=== PATIENT | female | born 1975 | race Caucasian/White ===

== ENCOUNTER 2021-08-10 23:17 | Emergency (ER) | payer SELFPAY ==
[2021-08-11 00:11] LABS: Urine Blood Negative (Negative); Urine Glucose Negative (Negative); Urine Protein Negative (Negative); Urine Specific Gravity >=1.030 (1.005-1.030)
[2021-08-11 00:32] LABS: Barbiturates NEGATIVE (NEGATIVE); Benzodiazepines NEGATIVE (NEGATIVE); Cocaine NEGATIVE (NEGATIVE); METHAMPHETAM NEGATIVE (NEGATIVE); Methadone NEGATIVE (NEGATIVE); Opiates NEGATIVE (NEGATIVE); Phencyclidine NEGATIVE (NEGATIVE); THC Cannibis NEGATIVE (NEGATIVE)
[2021-08-11 00:46] LABS: Urine Amorphous Sediment 1+ /HPF (NONE SEEN); Urine Bacteria <20 /HPF (<20); Urine RBC NONE SEEN /HPF (NONE SEEN)
[2021-08-11] MEDS ORDERED: ONDANSETRON 4 MG/2 ML VIAL ONE (00:55)
[2021-08-11] MEDS ORDERED: MORPHINE 4 MG/ML SYR ONE (00:55)
[2021-08-11] MEDS ORDERED: NA CHLORIDE 0.9% 1,000 ML ONE (00:55)
[2021-08-11 01:10] LABS: Absolute Lymphocytes (CBC) 1.8 K/uL (0.7-4.9); Hematocrit 41.1 % (36.0-45.0); Lymphocytes % 31.1 % (15.3-44.8); MPV 7.7 fL (7.6-11.3); RBC Red Blood Cell Count 4.69 M/uL (3.86-4.86)
[2021-08-11 01:23] LABS: Albumin 4.1 g/dL (3.4-5.0); Bilirubin Total 0.4 mg/dL (0.2-1.0); Potassium 3.8 mmol/L (3.5-5.1); Protein, Total 8.6 g/dL (6.4-8.2)
--- NOTE | 2021-08-11 02:50 | ER ---
Nurse's Notes [facility] Name: Oanh Gomez Age: 46 yrs Sex: Female : 1975 Arrival Date: 08/10/2021 Time: 23:20 Bed 2 Private MD: Diagnosis: Abdominal pain, unspecified;Nausea with vomiting, unspecified Presentation: 08/10 23:30 Chief complaint: Patient states: "My side hurts real bad and I had blood come out of me lp1 but I don't know where it came out from"; Reports RLQ abdominal pain, vomiting, diarrhea, severe today. Coronavirus screen: At this time, the client does not indicate any symptoms associated with coronavirus-19. Ebola Screen: No symptoms or risks identified at this time. Initial Sepsis Screen: Does the patient meet any 2 criteria? Yes Does the patient have a suspected source of infection? No. Patient's initial sepsis screen is negative. Risk Assessment: Do you want to hurt yourself or someone else? Patient reports no desire to harm self or others. Onset of symptoms was August 10, 2021. 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 - Social history:: Smoking status: Patient reports the use of cigarette tobacco products, smokes one-half pack cigarettes per day. Screenin/11 00:58 Abuse screen: Denies threats or abuse. Denies injuries from another. Nutritional as6 screening: No deficits noted. Tuberculosis screening: No symptoms or risk factors identified. Fall Risk None identified. Assessment: 00:00 General: Appears in no apparent distress. uncomfortable, Behavior is calm, cooperative. as6 Pain: Complains of pain in posterior aspect of right lateral abdomen, anterior aspect of right lateral abdomen and right lower quadrant Pain radiates to back, suprapubic area and left lower quadrant Quality of pain is described as crampy, pressure, sharp. Neuro: Level of Consciousness is awake, alert, obeys commands, Oriented to person, place, time, situation. Cardiovascular: Capillary refill < 3 seconds Patient's skin is warm and dry. Respiratory: Airway is patent Trachea midline Respiratory effort is even, unlabored, Respiratory pattern is regular, symmetrical. GI: Abdomen is distended, Bowel sounds present X 4 quads. Abdomen is tender to palpation in right lower quadrant Reports nausea, vomiting. Vital Signs: 08/10 23:30 BP 161 / 101; Pulse 85; Resp 18; Temp 98.2(O); Pulse Ox 97% on R/A; Weight 72.12 kg lp1 (R); Height 5 ft. 4 in. (162.56 cm); Pain 02/09; 08/11 00:58 BP 141 / 75; Pulse 79; Resp 18 S; Pulse Ox 96% on R/A; as6 02:38 BP 94 / 53; Pulse 78; Resp 17; Pulse Ox 98% on R/A; kd3 08/10 23:30 Body Mass Index 27.29 (72.12 kg, 162.56 cm) lp1 ED Course: 08/10 23:20 Patient arrived in ED. kz 23:21 Pavel Boudreaux, TERENCE is Primary Nurse. as6 23:29 Curtis Brito MD is Attending Physician. mh7 23:32 Triage completed. lp1 23:32 Arm band placed on. lp1 08/11 00:14 Urine Microscopic Only Sent. as6 00:14 UDS Sent. as6 00:27 CT Stone Protocol In Process Unspecified. EDMS 00:52 Inserted saline lock: 22 gauge in right wrist, using aseptic technique. Blood collected.oe 00:58 Placed in gown. Bed in low position. Call light in reach. Side rails up X 1. Pulse ox as6 on. NIBP on. 03:06 No provider procedures requiring assistance completed. IV discontinued, intact, as6 bleeding controlled, No redness/swelling at site. Pressure dressing applied. Administered Medications: 00:57 Drug: NS 0.9% 1000 ml Route: IV; Rate: 1 bolus; Site: left hand; as6 03:06 Follow up: Response: No adverse reaction; IV Status: Completed infusion; IV Intake: as6 1000ml 00:57 Drug: Zofran (Ondansetron) 4 mg Route: IVP; Site: left hand; as6 03:06 Follow up: Response: No adverse reaction as6 00:57 Drug: morphine 4 mg Route: IVP; Site: left hand; as6 03:07 Follow up: Response: No adverse reaction; RASS: Alert and Calm (0) as6 Intake: 03:06 IV: 1000ml; Total: 1000ml. as6 Outcome: 02:49 Discharge ordered by . scott 03:06 Discharged to home ambulatory. as6 03:06 Condition: stable 03:06 Discharge instructions given to patient, Instructed on discharge instructions, follow up and referral plans. medication usage, Demonstrated understanding of instructions, follow-up care, medications, Prescriptions given X 2. 03:07 Patient left the ED. as6 Signatures: Dispatcher [employer] EDMS Jie Uribe, RN RN lp1 Marcelo Gonzáles Maurice, MD MD mh7 Pavel Boudreaux RN RN as6 Tonya Pinto RN RN kd3 Aixa Tobin
--- NOTE | 2021-08-11 02:50 | EDPHYS ---
Physician Documentation [facility] Name: Oanh Gomez Age: 46 yrs Sex: Female : 1975 Arrival Date: 08/10/2021 Time: 23:20 Bed 2 Private MD: ED Physician Curtis Brito HPI: 08/10 23:49 This 46 yrs old Female presents to ER via Wheelchair with complaints of Rectal mh7 Bleeding, Abdominal Pain - Right side. 23:49 The patient presents with abdominal pain right lower quadrant. Onset: The mh7 symptoms/episode began/occurred 3 week(s) ago. The symptoms radiate to the right flank. Associated signs and symptoms: Pertinent positives: nausea and vomiting, hematuria, Pertinent negatives: anorexia, blood in stools, chest pain, constipation, diarrhea, dysuria, fever, headache, palpitations, shortness of breath, vaginal discharge, vomiting blood. The symptoms are described as intermittent, vague, waxing/waning. Modifying factors: The symptoms are alleviated by nothing, the symptoms are aggravated by movement, touching the area. Severity of pain: At its worst the pain was moderate 3 day(s) ago, in the emergency department the pain has improved moderately. 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 - Social history:: Smoking status: Patient reports the use of cigarette tobacco products, smokes one-half pack cigarettes per day. ROS: 23:49 Constitutional: Negative for fever, chills, and weight loss, Eyes: Negative for injury, mh7 pain, redness, and discharge, ENT: Negative for injury, pain, and discharge, Neck: Negative for injury, pain, and swelling, Cardiovascular: Negative for chest pain, palpitations, and edema, Respiratory: Negative for shortness of breath, cough, wheezing, and pleuritic chest pain, MS/Extremity: Negative for injury and deformity, Skin: Negative for injury, rash, and discoloration, Neuro: Negative for headache, weakness, numbness, tingling, and seizure, Psych: Negative for depression, anxiety, suicide ideation, homicidal ideation, and hallucinations, Allergy/Immunology: Negative for hives, rash, and allergies, Endocrine: Negative for neck swelling, polydipsia, polyuria, polyphagia, and marked weight changes, Hematologic/Lymphatic: Negative for swollen nodes, abnormal bleeding, and unusual bruising. Exam: 23:49 Constitutional: This is a well developed, well nourished patient who is awake, alert, mh7 and in no acute distress. Head/Face: Normocephalic, atraumatic. Eyes: Pupils equal round and reactive to light, extra-ocular motions intact. Lids and lashes normal. Conjunctiva and sclera are non-icteric and not injected. Cornea within normal limits. Periorbital areas with no swelling, redness, or edema. 23:49 Neck: Trachea midline, no thyromegaly or masses palpated, and no cervical lymphadenopathy. Supple, full range of motion without nuchal rigidity, or vertebral point tenderness. No Meningismus. Chest/axilla: Normal chest wall appearance and motion. Nontender with no deformity. No lesions are appreciated. Cardiovascular: Regular rate and rhythm with a normal S1 and S2. No gallops, murmurs, or rubs. Normal PMI, no JVD. No pulse deficits. Respiratory: Lungs have equal breath sounds bilaterally, clear to auscultation and percussion. No rales, rhonchi or wheezes noted. No increased work of breathing, no retractions or nasal flaring. Skin: Warm, dry with normal turgor. Normal color with no rashes, no lesions, and no evidence of cellulitis. MS/ Extremity: Pulses equal, no cyanosis. Neurovascular intact. Full, normal range of motion. Neuro: Awake and alert, GCS 15, oriented to person, place, time, and situation. Cranial nerves II-XII grossly intact. Motor strength 5/5 in all extremities. Sensory grossly intact. Cerebellar exam normal. Normal gait. Psych: Awake, alert, with orientation to person, place and time. Behavior, mood, and affect are within normal limits. 23:49 Constitutional: The patient appears uncomfortable. 23:49 Abdomen/GI: Inspection: abdomen appears normal, Bowel sounds: normal, in all quadrants, mh7 Palpation: moderate abdominal tenderness, in the right lower quadrant, mass, is not appreciated, rebound tenderness, is not appreciated, voluntary guarding, is not appreciated, involuntary guarding, is not appreciated, no appreciated organomegaly, Rectal exam: rectal tone normal, Stool: brown, guaiac negative, hemorrhoid(s), are not appreciated, mass, is not appreciated, swelling, is not appreciated, tenderness, is not appreciated, the exam is chaperoned by the nurse, Indicators: McBurney's point is not tender, Le's sign is negative, Rovsing's sign is negative, Obturator sign is negative, Psoas sign is negative, Liver: no appreciated palpable abnormalities, Hernia: not appreciated. 23:49 Back: No spinal tenderness. No costovertebral tenderness. Full range of motion. 7 Vital Signs: 23:30 BP 161 / 101; Pulse 85; Resp 18; Temp 98.2(O); Pulse Ox 97% on R/A; Weight 72.12 kg lp1 (R); Height 5 ft. 4 in. (162.56 cm); Pain 02/09; 08/11 00:58 BP 141 / 75; Pulse 79; Resp 18 S; Pulse Ox 96% on R/A; as6 02:38 BP 94 / 53; Pulse 78; Resp 17; Pulse Ox 98% on R/A; kd3 08/10 23:30 Body Mass Index 27.29 (72.12 kg, 162.56 cm) lp1 MDM: 02:45 Differential diagnosis: appendicitis, bowel obstruction, diverticulitis, gastritis, mh7 gastroesophageal reflux disease, non-specific abd pain, Pyelonephritis, Ureterolithiasis, urinary tract infection. Data reviewed: vital signs, nurses notes, lab test result(s), CBC, electrolytes, urinalysis, radiologic studies, CT scan. Data interpreted: Pulse oximetry: on room air is 98 %. Interpretation: normal. Counseling: I had a detailed discussion with the patient and/or guardian regarding: the historical points, exam findings, and any diagnostic results supporting the discharge/admit diagnosis, lab results, radiology results, the need for outpatient follow up, to return to the emergency department if symptoms worsen or persist or if there are any questions or concerns that arise at home. Response to treatment: the patient's symptoms have resolved after treatment, the patient's blood pressure is in an acceptable range, mental status has returned to baseline, the patient no longer shows bradycardia, the patient is not short of breath, the patient is not tachycardic, the patient's pain is gone, the patient's temperature has normalized. 02:49 Patient medically screened. [facility] 08/10 23:45 Order name: CBC with Diff; Complete Time: 01:24 [facility] 08/10 23:45 Order name: CMP; Complete Time: 01:24 [facility] 08/10 23:45 Order name: Lipase; Complete Time: 01:24 [facility] 08/10 23:45 Order name: Urine Microscopic Only; Complete Time: 01:24 [facility] 08/10 23:46 Order name: UDS; Complete Time: 01:24 [facility] 08/11 00:11 Order name: Urine --Ancillary (enter results); Complete Time: 01:24 [facility] 08/10 23:45 Order name: IV Saline Lock; Complete Time: 00:57 [facility] 08/10 23:45 Order name: Labs collected and sent; Complete Time: 00:57 [facility] 08/10 23:45 Order name: Urine Dipstick-Ancillary (obtain specimen); Complete Time: 00:14 [facility] 08/10 23:47 Order name: CT Stone Protocol [facility] 08/11 00:11 Order name: Urine Dipstick-Ancillary; Complete Time: 01:24 [facility] 08/10 23:45 Order name: Urine Test (obtain specimen); Complete Time: 00:14 [facility] Administered Medications: 00:57 Drug: NS 0.9% 1000 ml Route: IV; Rate: 1 bolus; Site: left hand; as6 03:06 Follow up: Response: No adverse reaction; IV Status: Completed infusion; IV Intake: as6 1000ml 00:57 Drug: Zofran (Ondansetron) 4 mg Route: IVP; Site: left hand; as6 03:06 Follow up: Response: No adverse reaction as6 00:57 Drug: morphine 4 mg Route: IVP; Site: left hand; as6 03:07 Follow up: Response: No adverse reaction; RASS: Alert and Calm (0) as6 Disposition Summary: 08/11/21 02:49 Discharge Ordered Location: Home [facility] Problem: new [facility] Symptoms: have improved mh Condition: Stable [facility] Diagnosis - Abdominal pain, unspecified mh7 - Nausea with vomiting, unspecified [facility] Followup: [facility] - With: Private Physician - When: 1 - 2 days - Reason: Worsening of condition, Recheck today's complaints, Continuance of care, Re-evaluation by your physician Discharge Instructions: - Discharge Summary Sheet [facility] - Nausea and Vomiting, Adult, [id number] [facility] - Abdominal Pain, Adult, [id number] [facility] Forms: - Medication Reconciliation Form [facility] - Thank You Letter [facility] - Antibiotic Education [facility] - Prescription Opioid Use [facility] Prescriptions: - ondansetron 4 mg Oral tablet,disintegrating - place 1 tablet by TRANSLINGUAL route every 8 hours As needed; 10 tablet; 7 Refills: 0, Product Selection Permitted - dicyclomine 20 mg Oral Tablet - take 1 tablet by ORAL route 4 times per day As needed; 20 tablet; Refills: 0, 7 Product Selection Permitted Signatures: Dispatcher [employer] Jie Corona RN RN lp1 Curtis Brito MD MD 7 Pavel Boudreaux RN RN as6
[2021-08-11 06:55] VITALS: TEMP 98.2
[2021-08-11 06:58] VITALS: BP 94/53; O2SAT 98
--- NOTE | 2021-08-11 16:11 | RAD REPORT ---
EXAM DESCRIPTION: CT - Stone Protocol - 08/11/2021 6:42 am CLINICAL HISTORY: The patient is 46 years old and is Female; Abd pain;Flank pain TECHNIQUE: Axial computed tomography images of the abdomen and pelvis without intravenous contrast. Sagittal and coronal reformatted images were created and reviewed. This CT exam was performed usi ng one or more of the following dose reduction techniques: automated exposure control, adjustment o f the mA and/or kV according to patient size, and/or use of iterative reconstruction technique. COMPARISON: No relevant prior studies available. FINDINGS: Lung bases: 7 mm groundglass nodule in the right lower lobe. ABDOMEN: Liver: Unremarkable. Gallbladder and bile ducts: Unremarkable. No calcified stones. No ductal dilation. Pancreas: Unremarkable. No ductal dilation. Spleen: Unremarkable. No splenomegaly. Adrenals: Unremarkable. No mass. Kidneys and ureters: Mildly nodular/scarred appearance to the right kidney. Simple cyst in the l eft kidney. ACR White Paper guidelines (Herpollo, et al. JACR 2018; 15(2):264-273) suggest no follow-up is necessary. No obstructing stones. No hydronephrosis. Stomach and bowel: Unremarkable. No obstruction. No mucosal thickening. PELVIS: Appendix: The appendix is normal. Bladder: Unremarkable. No stones. Reproductive: Unremarkable as visualized. ABDOMEN and PELVIS: Intraperitoneal space: Unremarkable. No free air. No significant fluid collection. Bones/joints: No acute fracture. No dislocation. Soft tissues: Unremarkable. Vasculature: Scattered atherosclerotic vascular calcifications. No abdominal aortic aneurysm. Lymph nodes: Unremarkable. No enlarged lymph nodes. IMPRESSION: 1. No acute finding abdomen/pelvis. 2. Additional non-emergent findings as above. Electronically signed by: Milton Carrillo MD 08/11/2021 12:50 AM CDT Due to temporary technical issues with the PACS/Fluency reporting system, reports are being signed by the in house radiologist without review as a courtesy to ensure prompt reporting. The interpreting r adiologist is fully responsible for the content of the report.
== END 2021-08-11 03:07 | disposition home or self-care (01) ==
LOC: ER 23:17
DX: R10.31 Right lower quadrant pain (principal); R11.2 Nausea with vomiting, unspecified; F17.210 Nicotine dependence, cigarettes, uncomplicated; Z88.5 Allergy status to narcotic agent
CPT/HCPCS: 36415; 74176; 76377; 80053; 80307; 81003; 81015; 81025; 83690; 85025; 96361; 96374; 96375; 99284; J2405; J7030

== ENCOUNTER 2021-08-24 14:25 | Emergency (ER) | payer SELFPAY ==
--- OUTSIDE RECORDS SUMMARY | 2021-08-24 14:29 | XMS REPORT | Continuity of Care Document ---
:1975 Author Organization [facility] t Address [address] [place] [address] Care Team Providers Name Role Phone Physician, Primary or Family Admitting Clinician Unavailabl e Payers Payer Name Policy Type Policy Number Effective Date Expiration Date S ource Problems This patient has no known problems. Allergies, Adverse Reactions, Alerts Allergy Allergy Status Severity Reaction(s) Onset Inactive Treating Comm ents Source Name Type Date Date Clinician No Known DA Active U [facility] Allergie 09-07 Clear s 00:00: [place] 00 [facility] Medications This patient has no known medications. Procedures This patient has no known procedures. Encounters Start End Encounter Admission Attending Care Care Encounter Source Date/Time Date/Time Type Type Clinicians Facility Department ID 2020-06-05 [id number] [facility] 19:59:00 [id number] [facility] Results Test Description Test Time Test Comments Results Result Comments Source CT/NG, NAAT, URINE 2021-08-15 17:22:13 Test Item Value Reference Range Interpretation Comme nts GONORRHEA, NAAT NEGATIVE NEGATIVE IMPORTANT NOTICE: SEE ANNOUNCEMENT (test code = [place] [address]) [email or web address] Note: Assay methodolo gy is nucleic acid amplification by transcriptio n mediated amplification (TMA) utilizing the Aptima Combo 2 Assay. CHLAMYDIA, NAAT NEGATIVE NEGATIVE IMPORTANT NOTICE: SEE ANNOUNCEMENT (test code = [place] [address]) [email or web address] Note: Assay methodolo gy is nucleic acid amplification by transcriptio n mediated amplification (TMA) utilizing the Aptima Combo 2 Assay. HCV RNA, PCR [id number] 14:43:13 Test Item Value Reference Range Interpretation Comments HCV RNA, PCR 120713 IU/ML H QUANT (test code = 4571) HCV VIRAL LOG 5.678 LOG IU/ML H HCV RNA wa s detected, (test code = indicating curr ent HCV 39047) infection. Rang e of quantitation is 15-100,000,000 IU/mL, (1.176-8.000 lo gIU/mL). Samples with HC V RNA detected below the limit ofquantit ation are reported as <15 IU/mL. Assay methodology ispolymerase ch ain reaction (PCR) using the Fide Tee 6800/8800system . The expected range is NOT DETECTED. UNLESS OTHERWISE INDIC ATED, ALL TESTING PER FORMED ATCLINICAL PATH [facility]. [address] [place] [address] LABORATORY DIRE CTOR: Jose Luis HERRON [id number] CAP ACCREDITATION N O. [id number] 05:06:54 Test Item Value Reference Range Interpretation Comments RPR RESULT (test code = NON-REACTIVE NON-REACTIVE 3501) RPR TITER (test code = 3500) NOT INDIC. TITER NOT INDIC. HEPATITIS C REFLEX [id number] 03:54:02 Test Item Value Reference Range Interpretation Comments HEPATITIS C ANTIBODY (test code = REACTIVE NON-REACTIVE A 4675) HEPATITIS A [id number] 03:54:02 Test Item Value Reference Range Interpretation Comments HEPATITIS A IgM (test code = NON-REACTIVE NON-REACTIVE 53871) HEPATITIS B CORE [id number] 03:54:02 Test Item Value Reference Range Interpretation Comments HEPATITIS B CORE IgM (test code NON-REACTIVE NON-REACTIVE = 4644) HEPATITIS B SURF [id number] 03:54:02 Test Item Value Reference Range Interpretation Comments HEPATITIS B SURF AG (test code = NON-REACTIVE NON-REACTIVE 8859) HIV 1/2 4TH GEN, RFLX [id number] 03:54:02 Test Item Value Reference Range Interpretation Comments HIV 1/2 4TH GEN, RFLX CONF (test NON-REACTIVE NON-REACTIVE code = 3514)
--- NOTE | 2021-08-24 16:57 | RAD REPORT ---
EXAM DESCRIPTION: US - Extremity Venous Uni Ltd - 08/24/2021 4:44 pm CLINICAL HISTORY: Pain COMPARISON: None. TECHNIQUE: Real-time sonographic evaluation of the left lower extremity deep venous system was perfo rmed. FINDINGS: Normal compressibility, flow augmentation, phasic flow and spontaneous flow are identified in the left lower extremity common femoral, superficial femoral, popliteal and posterior tibial vein s. No intraluminal filling defects seen. IMPRESSION: No DVT in the left lower extremity.
--- NOTE | 2021-08-24 17:03 | RAD REPORT ---
EXAM DESCRIPTION: RAD - Hip Left 2 View - 08/24/2021 4:00 pm CLINICAL HISTORY: PAIN COMPARISON: Stone Protocol dated 08/11/2021 FINDINGS: AP and frogleg views of the left hip were obtained. Severe degenerative changes are present at the left hip joint. The superior joint space is effaced. T here are numerous subcortical degenerative cystic changes in both the femoral head and the acetabulum . Acetabular and femoral head marginal hypertrophic degenerative spurs are present. The acetabulum is not increased can cavity over what is typically seen. Eggshell calcification is seen along the infer ior margin of the joint. No acute fracture is present. There is no dislocation or periosteal reaction. Pathologic changes are not identifiable. No soft tissue abnormality. 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 No acute fractures seen. No pathologic bone process.
--- NOTE | 2021-08-24 17:43 | RAD REPORT ---
EXAM DESCRIPTION: CT - Pelvis Wo Cont - 08/24/2021 5:23 pm CLINICAL HISTORY: left hip pain COMPARISON: Stone Protocol dated 08/11/2021 TECHNIQUE: Axial 2 millimeter thick images of the pelvis were obtained without oral or IV contrast. Sagittal and coronal reformatted images were generated and reviewed. All CT scans are performed using dose optimization technique as appropriate and may include automate d exposure control or mA/KV adjustment according to patient size. FINDINGS: Imaged bowel loops including the appendix are unremarkable. Uterus and ovaries show no giuseppe picious findings for noncontrast imaging. No urinary bladder abnormality seen. No abnormal lymphadenopathy, free air, free fluid or inflammatory stranding. No omental thickening. N o hernia or mass lesions identified. Partially imaged lower lumbar spine shows no suspicious finding. No significant SI joint abnormality identified. Right hemipelvis is unremarkable. No acute pelvic or hip joint finding seen. Patient has very severe left hip joint degenerative change . There are large subcortical degenerative cystic changes in the left humeral head. Moderately large spurs are seen along the articular margins of both the humeral head and acetabulum. Femoral head stil l maintains rounded contour. There is increased concavity or scalloping of the acetabulum which has r emodeled from the chronic degenerative change. An 18 millimeter rim calcification masses present jorge luis g the inferior margin of the joint. No acute or pathologic change to the proximal femur or left hemip earl. Joint space is effaced. IMPRESSION: Very severe chronic degenerative changes of the left hip joint with probable femoral hea d AVN. Large spurs are present along the articular margins of the femoral head and acetabulum with the aceta bulum showing increased concavity and remodeling from the chronic change. No acute proximal femur or pelvis finding. No periarticular hematoma or mass.
--- NOTE | 2021-08-24 17:58 | EDPHYS ---
Physician Documentation [facility] Name: Oanh Gomez Age: 46 yrs Sex: Female : 1975 Arrival Date: 08/24/2021 Time: 14:27 Bed 10 Private MD: ED Physician Clau Hernandez HPI: 08/24 15:45 This 46 yrs old Female presents to ER via Ambulatory with complaints of Hip Pain. cp 15:45 The patient or guardian reports pain. sustained from unknown reason, There is no cp obvious deformity, The patient is able to ambulate with assistance. The patient is able to bear their full body weight. There is no radiation of the patient's discomfort. The complaints affect the left hip. Onset: The symptoms/episode began/occurred gradually, and became worse over past 2 months. Associated signs and symptoms: Pertinent negatives: abdominal pain, chest pain, diarrhea, dysuria, fever, weakness. Severity of symptoms: in the emergency department the symptoms are unchanged, despite home interventions. 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 - Social history:: Smoking status: Patient reports the use of cigarette tobacco products, smokes one-half pack cigarettes per day, 04/14/2021 last time using cocaine. ROS: 15:50 MS/extremity: Positive for pain, of the left hip, Negative for injury or acute cp deformity, decreased range of motion, paresthesias. 15:50 Neck: Negative for pain with movement, pain at rest. cp 15:50 Abdomen/GI: Negative for abdominal pain. 15:50 Back: Negative for pain at rest, pain with movement. 15:50 : Negative for urinary symptoms. 15:50 Skin: Negative for rash. 15:50 Neuro: Negative for altered mental status, headache, numbness, weakness. 15:50 All other systems are negative. Exam: 15:55 Constitutional: The patient appears in no acute distress, alert, awake, non-toxic, well cp developed, well nourished, uncomfortable. 15:55 Head/Face: Normocephalic, atraumatic. cp 15:55 Neck: ROM/movement: is normal, is supple, without pain, no range of motions limitations. 15:55 Cardiovascular: Rate: normal. 15:55 Respiratory: the patient does not display signs of respiratory distress, Respirations: normal, no use of accessory muscles, no retractions. 15:55 Abdomen/GI: Inspection: abdomen appears normal, Bowel sounds: active, all quadrants, Palpation: abdomen is soft and non-tender, in all quadrants. 15:55 Back: pain, is absent, ROM is normal. 15:55 Musculoskeletal/extremity: ROM: full passive range of motion, in the left hip, limited passive range of motion due to pain, in the left hip, Pulses: noted to be 2+ in the left dorsalis pedis artery, the left leg Sensation intact. Joints: the left hip displays pain at rest, painful range of motion, tenderness. 15:55 Skin: cellulitis, is not appreciated, no rash present. Vital Signs: 14:38 BP 112 / 84; Pulse 91; Resp 18; Temp 98.6; Pulse Ox 97% on R/A; Weight 73.03 kg; Height ww 5 ft. 4 in. (162.56 cm); Pain 10/10; 16:05 BP 118 / 86; Pulse 86; Resp 18; Pulse Ox 99% on R/A; Pain 8/10; ld1 17:29 BP 126 / 81; Pulse 79; Resp 18; Pulse Ox 100% on R/A; ld1 14:38 Body Mass Index 27.64 (73.03 kg, 162.56 cm) MDM: 15:40 Patient medically screened. cp 16:00 Differential diagnosis: hip fracture, bursitis, arthritis, AVN, septic joint. cp 17:58 Data reviewed: vital signs, nurses notes, radiologic studies, CT scan, plain films. cp 17:58 Counseling: I had a detailed discussion with the patient and/or guardian regarding: the cp historical points, exam findings, and any diagnostic results supporting the discharge/admit diagnosis, radiology results, the need for outpatient follow up, for definitive care, a orthopedic surgeon, to return to the emergency department if symptoms worsen or persist or if there are any questions or concerns that arise at home. Response to treatment: the patient's symptoms have mildly improved after treatment, Discussed radiology results showed significant degenerative changes of left hip. Low suspicion for septic joint. Will discharge to home for continued monitoring. Patient instructed to f/u with ortho. 08/24 15:31 Order name: Hip Left 2 View XRAY; Complete Time: 17:36 cp 08/24 17:37 Interpretation: Report reviewed. cp 08/24 15:31 Order name: US Extremity Venous Unilateral Ltd; Complete Time: 17:36 cp 08/24 16:36 Order name: CT Pelvis wo Cont; Complete Time: 17:46 cp 08/24 17:59 Order name: Crutches; Complete Time: 18:08 cp Administered Medications: No medications were administered Disposition Summary: 08/24/21 17:58 Discharge Ordered Location: Home cp Problem: new cp Symptoms: have improved cp Condition: Stable cp Diagnosis - Pain in left hip cp Followup: cp - With: Riley Singh MD - When: 2 - 3 days - Reason: Recheck today's complaints Discharge Instructions: - Discharge Summary Sheet cp - Arthritis cp - Hip Pain cp Forms: - Medication Reconciliation Form cp - Thank You Letter cp - Antibiotic Education cp - Prescription Opioid Use cp Prescriptions: - Ultracet 37.5-325 mg Oral Tablet - take 1 tablet by ORAL route every 6 hours - for up to 5 days; do not exceed 8 cp tablets per day.; 15 tablet; Refills: 0, Product Selection Permitted Signatures: Dispatcher [employer] Rafael Nettles PA PA cp Wood, Whitney, RN RN ww
--- NOTE | 2021-08-24 17:58 | ER ---
Nurse's Notes [facility] Name: Oanh Gomez Age: 46 yrs Sex: Female : 1975 Arrival Date: 08/24/2021 Time: 14:27 Bed 10 Private MD: Diagnosis: Pain in left hip Presentation: 08/24 14:38 Chief complaint: Patient states: Left hip, thigh and leg pain that started awhile ago ww but has recently started swelling. Coronavirus screen: Client denies travel out of the [place] in the last 14 days. Coronavirus screen: Vaccine status: Patient reports being unvaccinated. Ebola Screen: Patient denies travel to an Ebola-affected area in the 21 days before illness onset. Initial Sepsis Screen: Does the patient meet any 2 criteria? No. Patient's initial sepsis screen is negative. Does the patient have a suspected source of infection? No. Patient's initial sepsis screen is negative. Risk Assessment: Do you want to hurt yourself or someone else? Patient reports no desire to harm self or others. Onset of symptoms is unknown. 14:38 Method Of Arrival: Ambulatory ww 14:38 Acuity: CARLOS A 4 ww Triage Assessment: 14:39 General: Appears in no apparent distress. Behavior is cooperative. Pain: Complains of ww pain in left femoral area and left hip. Neuro: Level of Consciousness is awake, alert, obeys commands, Oriented to person, place, time, situation, Gait is Speech is normal. Cardiovascular: Patient's skin is warm and dry. Respiratory: Airway is patent Respiratory effort is even, unlabored, Respiratory pattern is regular, symmetrical. GI: No signs and/or symptoms were reported involving the gastrointestinal system. GI: Reports constipation. : No signs and/or symptoms were reported regarding the genitourinary system. Derm:. Musculoskeletal: Reports pain in left femoral area and left hip. 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 - Social history:: Smoking status: Patient reports the use of cigarette tobacco products, smokes one-half pack cigarettes per day, 04/14/2021 last time using cocaine. Screenin:42 Abuse screen: Denies threats or abuse. Denies injuries from another. Nutritional ww screening: No deficits noted. Tuberculosis screening: No symptoms or risk factors identified. 16:05 Fall Risk None identified. ld1 Assessment: 16:05 General: Appears in no apparent distress. comfortable, Behavior is calm, cooperative, ld1 appropriate for age. Pain: Complains of pain in left leg Pain does not radiate. Pain currently is 8 out of 10 on a pain scale. Quality of pain is described as throbbing. Neuro: Level of Consciousness is awake, alert, obeys commands, Oriented to person, place, time, situation. Cardiovascular: Capillary refill < 3 seconds Patient's skin is warm and dry. Respiratory: Airway is patent Respiratory effort is even, unlabored, Respiratory pattern is regular, symmetrical. GI: Abdomen is flat, non-distended. : No signs and/or symptoms were reported regarding the genitourinary system. EENT: No signs and/or symptoms were reported regarding the EENT system. Derm: No signs and/or symptoms reported regarding the dermatologic system. Musculoskeletal: No signs and/or symptoms reported regarding the musculoskeletal system. Vital Signs: 14:38 BP 112 / 84; Pulse 91; Resp 18; Temp 98.6; Pulse Ox 97% on R/A; Weight 73.03 kg; Height ww 5 ft. 4 in. (162.56 cm); Pain 10/10; 16:05 BP 118 / 86; Pulse 86; Resp 18; Pulse Ox 99% on R/A; Pain 8/10; ld1 17:29 BP 126 / 81; Pulse 79; Resp 18; Pulse Ox 100% on R/A; ld1 14:38 Body Mass Index 27.64 (73.03 kg, 162.56 cm) ww ED Course: 14:27 Patient arrived in ED. mr 14:39 Triage completed. ww 14:39 Arm band placed on right wrist. ww 15:23 Rafael Carbone PA is PHCP. cp 15:23 Clau Hernandez MD is Attending Physician. cp 16:02 Hip Left 2 View XRAY In Process Unspecified. EDMS 16:05 Sonam Blount, RN is Primary Nurse. ld1 16:05 Patient has correct armband on for positive identification. Placed in gown. Bed in low ld1 position. Call light in reach. Side rails up X2. Pulse ox on. NIBP on. Door closed. Noise minimized. Warm blanket given. 16:05 No provider procedures requiring assistance completed. Patient did not have IV access ld1 during this emergency room visit. 16:46 US Extremity Venous Unilateral Ltd In Process Unspecified. EDMS 17:25 CT Pelvis wo Cont In Process Unspecified. EDMS 17:57 Riley Singh MD is Referral Physician. cp Administered Medications: No medications were administered Outcome: 17:58 Discharge ordered by MD. cp 18:08 Discharged to home ambulatory, with crutches. ld1 18:08 Condition: stable 18:08 Discharge instructions given to patient, Instructed on discharge instructions, follow up and referral plans. medication usage, Demonstrated understanding of instructions, follow-up care, medications, Prescriptions given X 1. 18:09 Patient left the ED. ld1 Signatures: Dispatcher [employer] EDPR Aide Shah mr Rafael Carbone, CINDY PA cp Sonam Blount, RN RN ld1 Ewa Bell, RN RN ww
[2021-08-24 18:21] VITALS: TEMP 98.6
[2021-08-24 18:24] VITALS: BP 126/81; O2SAT 100
== END 2021-08-24 18:09 | disposition home or self-care (01) ==
LOC: ER 14:25
DX: M25.552 Pain in left hip (principal); F17.210 Nicotine dependence, cigarettes, uncomplicated; Z88.5 Allergy status to narcotic agent
CPT/HCPCS: 72192; 93971; 99283

== ENCOUNTER → 2023-05-09 | Emergency (ER) | payer SELFPAY ==
[~2023-05-09] MED LIST: KETOROLAC 30 MG/ML INJ ONE; MORPHINE 4 MG/ML SYR ONE; NA CHLORIDE 0.9% 1,000 ML ONE; ONDANSETRON 4 MG/2 ML VIAL ONE; dexAMETHasone 10 MG/ML VIAL ONE
--- OUTSIDE RECORDS SUMMARY | 2023-05-09 21:10 | XMS REPORT | Continuity of Care Document ---
Author Name Unknown Address [address] [facility] [address] [id number] [facility] thconnect Address [address] [facility] [address] [place] [address] Care Team Providers Care Real Estate Closer Name Role Phone Unavailable Unavailable Unavailable Results Test Description Test Time Test Comments Results Result Co mments Source HEPATITIS C [id number] 21:59:13* Test Item Value Reference Range Interpretation Comme nts HEPATITIS C GENOTYPE (test code = 27798) 1a Assay method ology is real-time PCR amplification of the 5'UTR vpqFN2r regions of the HCV genome utilizing the [employer] Surgical RealTime HCVGenotype II assay and Clifford HCV Genotype Plus assay. Possiblegenotypes include 1a, 1b, 2, 3, 4, 5, and 6. This test has components designated by the automotive porter as "ForResearch Use Only". The performance characteristics of this testwere determined by [facility] ([facility]). The componentshave not been cleared or approved by the U.S. Food and DrugAdministration (FDA). The test results are not intended to be usedas the sole means for clinical diagnosis or patient management. [facility]is qualified to perform high complexity testing under the ClinicalLaboratory Improvement Amendments (CLIA). Electronically Signed by Sami Stark, Ph.D., D([facility]) COMPREHENSIVE METABOLIC [id number] 06:14:53* Test Item Value Reference Range Interpretation Comme nts GLUCOSE (test code = 2217) 78 MG/DL 70-99 BUN (test code = 2208) 16 MG/DL 6-20 CREATININE (test code = 2214) 0.57 MG/DL 0.60-1.30 L eGFR (2020 CKD-EPI) (test code = 13315) 113 ML/MIN/1.73 >60 CALC BUN/CREAT (test code = 2235) 28 RATIO 6-28 SODIUM (test code = 2230) 140 MEQ/L 133-146 POTASSIUM (test code = 2227) 3.8 MEQ/L 3.5-5.4 CHLORIDE (test code = 2214) 103 MEQ/L 95-107 CARBON DIOXIDE (test code = 2205) 21 MEQ/L 19-31 CALCIUM (test code = 2208) 9.9 MG/DL 8.5-10.5 PROTEIN, TOTAL (test code = 2228) 7.8 G/DL 6.1-8.3 ALBUMIN (test code = 2200) 4.4 G/DL 3.5-5.2 CALC GLOBULIN (test code = 2239) 3.4 G/DL 1.9-3.7 CALC A/G RATIO (test code = 2233) 1.3 RATIO 1.0-2.6 BILIRUBIN, TOTAL (test code = 2206) 0.3 MG/DL See_Comment [Automated me ssage] The system which generated this result transmitted reference range: <=1.2. The reference range was not used to interpret this result as normal/abnormal. ALKALINE PHOSPHATASE (test code = 2203) 78 U/L 40-120 AST (test code = 2217) 39 U/L 9-40 ALT (test code = 2218) 64 U/L 5-40 H CBC W/AUTO DIFF WITH [id number] 05:31:32* Test Item Value Reference Range Interpretation Comme nts WBC (test code = 1001) 6.3 K/UL 3.5-11.0 RBC (test code = 1002) 4.44 M/UL 3.80-5.40 HEMOGLOBIN (test code = 1003) 14.1 G/DL 11.5-15.5 HEMATOCRIT (test code = 1004) 40.0 % 34.0-45.0 MCV (test code = 1005) 90.1 fL 80.0-99.0 MCH (test code = 1006) 31.8 PG 25.0-33.0 MCHC (test code = 1007) 35.3 G/DL 31.0-36.0 RDW (test code = 1038) 12.9 % 11.5-15.0 NEUTROPHILS (test code = 1008) 63.5 % LYMPHOCYTES (test code = 1010) 25.4 % MONOCYTES (test code = 1011) 8.8 % EOSINOPHILS (test code = 1012) 1.4 % BASOPHILS (test code = 1013) 0.6 % IMMATURE GRANULOCYTES (test code = 1036) 0.3 % NUCLEATED RBCS (test code = 1065) 0.0 /100 WBC'S See_Comment [Automated messa ge] The system which generated this result transmitted reference range: 0.0. The reference range was not used to interpret this result as normal/abnormal. PLATELET COUNT (test code = 1015) 205 K/UL 130-400 ABSOLUTE NEUTROPHILS (test code = 1066) 3.97 K/UL 1.50-7.50 ABSOLUTE LYMPHOCYTES (test code = 1067) 1.59 K/UL 1.00-4.00 ABSOLUTE MONOCYTES (test code = 1068) 0.55 K/UL 0.20-1.00 ABSOLUTE EOSINOPHILS (test code = 1040) 0.09 K/UL 0.00-0.50 ABSOLUTE BASOPHILS (test code = 1069) 0.04 K/UL 0.00-0.20 ABS IMMATURE GRANULOCYTES (test code = 1020) 0.02 K/UL 0.00-0.10 ABS NUCLEATED RBCS (test code = 05881) 0.00 K/UL 0.00-0.11 HEP B CORE TOTAL [id number] 05:27:41* Test Item Value Reference Range Interpretation Comme nts HEP B CORE TOTAL AB (test co de = 2729) NON-REACTIVE NON-REACTIVE HEP B CORE AB RFLX [id number] 05:27:41* Test Item Value Reference Range Interpretation Comme nts HEP B CORE TOTAL AB (test code = 2729) NON-REACTIVE NON-REACTIVE UNLESS OTHERWISE INDICATED, ALL TESTING PERFORMED [facility] [address] [place] [id number] DRIVER SALESMAN: EMEKA MALDONADO M.D. CLIA NUMBER [id number] [place]. [id number] CT/NG, NAAT, [id number] 17:22:13* Test Item Value Reference Range Interpretation Comme nts GONORRHEA, NAAT (test code = 23849) NEGATIVE NEGATIVE IMPORTANT NO YIN: SEE ANNOUNCEMENT AT [email or web address] Note: Assay methodology is nucleic acid amplification by spray worker mediated amplification (TMA) utilizing the Aptima Combo 2 Assay. CHLAMYDIA, NAAT (test code = 53579) NEGATIVE NEGATIVE IMPORTANT NO YIN: SEE ANNOUNCEMENT AT [email or web address] Note: Assay methodology is nucleic acid amplification by spray worker mediated amplification (TMA) utilizing the Aptima Combo 2 Assay. HCV RNA, PCR [id number] 14:43:13* Test Item Value Reference Range Interpretation Comme nts HCV RNA, PCR QUANT (test code = 4571) 229025 IU/ML H HCV VIRAL LOG (test code = 75870) 5.678 LOG IU/ML H HCV RNA was dete cted, indicating current HCV infection. Range of quantitation is 15-100,000,000 IU/mL, (1.176-8.000 logIU/mL). Samples with HCV RNA detected below the limit ofquantitation are reported as <15 IU/mL. Assay methodology ispolymerase chain reaction (PCR) using the Fide Tee 6800/8800system. The expected range is NOT DETECTED. UNLESS OTHERWISE INDICATED, ALL TESTING PERFORMED [facility] [address] [place] [address] DRIVER SALESMAN: EMEKA MALDONADO M.D. CLIA NUMBER [id number] [facility] [place]. [id number] 05:06:54* Test Item Value Reference Range Interpretation Comme nts RPR RESULT (test code = 3501) NON-REACTIVE NON-REACTIVE RPR TITER (test code = 3500) NOT INDIC. TITER NOT INDIC. HEPATITIS B CORE [id number] 03:54:02* Test Item Value Reference Range Interpretation Comme nts HEPATITIS B CORE IgM (test c ode = 4644) NON-REACTIVE NON-REACTIVE HEPATITIS B SURF [id number] 03:54:02* Test Item Value Reference Range Interpretation Comme nts HEPATITIS B SURF AG (test co de = 2739) NON-REACTIVE NON-REACTIVE HIV 1/2 4TH GEN, RFLX [id number] 03:54:02* Test Item Value Reference Range Interpretation Comme nts HIV 1/2 4TH GEN, RFLX CONF ( test code = 3514) NON-REACTIVE NON-REACTIVE HEPATITIS C REFLEX [id number] 03:54:02* Test Item Value Reference Range Interpretation Comme nts HEPATITIS C ANTIBODY (test c ode = 4675) REACTIVE NON-REACTIVE A HEPATITIS A [id number] 03:54:02* Test Item Value Reference Range Interpretation Comme nts HEPATITIS A IgM (test code = 18903) NON-REACTIVE NON-REACTIVE
[2023-05-09 22:26] LABS: Urine Bacteria None Seen /HPF (<20); Urine Bilirubin NEGATIVE (Negative); Urine Blood Negative (Negative); Urine Clarity Extremely Turbid (Clear); Urine Color Light-Yellow (Yellow); Urine Glucose NEGATIVE (Negative); Urine Mucus Slight /HPF (None Seen); Urine Protein NEGATIVE (Negative); Urine RBC <5 /HPF (None Seen); Urine Urobilinogen Normal (Normal)
[2023-05-09 22:30] LABS: Barbiturates NEGATIVE (NEGATIVE); Benzodiazepines NEGATIVE (NEGATIVE); Cocaine NEGATIVE (NEGATIVE); METHAMPHETAM NEGATIVE (NEGATIVE); Methadone NEGATIVE (NEGATIVE); Opiates NEGATIVE (NEGATIVE); Phencyclidine NEGATIVE (NEGATIVE); THC Cannibis NEGATIVE (NEGATIVE)
--- NOTE | 2023-05-09 22:33 | RAD REPORT ---
EXAM DESCRIPTION: CT - Abdomen Pelvis Wo Contrast - 05/09/2023 10:16 pm CLINICAL HISTORY: PAIN COMPARISON: [facility] Protocol dated 08/11/2021 TECHNIQUE: Thin cut axial CT imaging of the abdomen and pelvis was performed without IV contrast. Mu ltiplanar reformats were generated and reviewed. All CT scans are performed using dose optimization technique as appropriate and may include automated exposure control or mA/KV adjustment according to patient size. FINDINGS: No suspicious findings in the lung bases. The liver, spleen, adrenal glands, and pancreas show no suspicious findings. Gallbladder and biliary tree are also without suspicious finding. Symmetric renal contour, without suspicious parenchymal findings within limits of noncontrast techniq ue. No evidence of radiopaque calculi or hydroureteronephrosis. Left interpolar 1.7 cm cortical cyst. No dilated bowel loops or bowel wall thickening. Appendix is unremarkable. No free air, free fluid or inflammatory stranding. No hernia, mass or bulky lymphadenopathy. The urinary bladder is without sig nificant finding. No suspicious bony findings. Advanced left hip degenerative changes again seen. IMPRESSION: No acute intra-abdominal process.
[2023-05-09 22:38] LABS: Albumin 3.5 g/dL (3.4-5.0); Bilirubin Total 0.4 mg/dL (0.2-1.0); Protein, Total 7.4 g/dL (6.4-8.2)
[2023-05-09 22:50] LABS: Potassium 3.9 mEq/L (3.5-5.1)
[2023-05-09 22:54] LABS: Absolute Lymphocytes (CBC) 1.5 K/uL (0.7-4.9); Hematocrit 39.4 % (36.0-45.0); MCV 89.9 fL (80-100); MPV 8.1 fL (7.6-11.3); Platelets 188 thou/uL (152-406); RBC Red Blood Cell Count 4.38 M/uL (3.86-4.86)
--- NOTE | 2023-05-09 23:11 | EDPHYS ---
Physician Documentation [facility] Name: Oanh Gomez Age: 48 yrs Sex: Female : 1975 Arrival Date: 05/09/2023 Time: 21:05 Bed 18 Private MD: Rafael Hernandez HPI: 05/09 22:01 This 48 yrs old Female presents to ER via Wheelchair with complaints of Leg ramona Pain, Right side pain patient states she can hardly walk. 22:01 The patient presents with decreased range of motion, an injury, tenderness. The ramona complaints affect the right gluteal fold. Context: resulted from an unknown cause, the patient can partially bear weight, the patient is able to ambulate, with moderate difficulty. Onset: The symptoms/episode began/occurred today. Modifying factors: The symptoms are alleviated by remaining still, the symptoms are aggravated by movement, weight bearing. Associated signs and symptoms: The patient has no apparent associated signs or symptoms. Treatment prior to arrival includes: no previous treatment. The patient has not experienced similar symptoms in the past. Historical: - Allergies: 21:23 Mobic; cm10 - PMHx: 21:23 Hepatitis C; History of drug abuse; cm10 - PSHx: 21:23 tubual; cm10 - Immunization history:: Adult Immunizations up to date. - Social history:: Smoking status: Patient denies any tobacco usage or history of. - Family history:: not pertinent. ROS: 22:01 Constitutional: Negative for fever, chills, and weight loss, Eyes: Negative for injury, ramona pain, redness, and discharge, ENT: Negative for injury, pain, and discharge, Neck: Negative for injury, pain, and swelling, Cardiovascular: Negative for chest pain, palpitations, and edema, Respiratory: Negative for shortness of breath, cough, wheezing, and pleuritic chest pain, Abdomen/GI: Negative for abdominal pain, nausea, vomiting, diarrhea, and constipation, : Negative for injury, bleeding, discharge, and swelling, Skin: Negative for injury, rash, and discoloration, Neuro: Negative for headache, weakness, numbness, tingling, and seizure, Psych: Negative for depression, anxiety, suicide ideation, homicidal ideation, and hallucinations, Allergy/Immunology: Negative for hives, rash, and allergies, Endocrine: Negative for neck swelling, polydipsia, polyuria, polyphagia, and marked weight changes, Hematologic/Lymphatic: Negative for swollen nodes, abnormal bleeding, and unusual bruising, 22:01 Back: Positive for injury or acute deformity, decreased range of motion, flank pain, on the right, of the right low back, 22:01 MS/extremity: Negative for decreased range of motion, pain, swelling, tenderness, Exam: 22:01 Constitutional: This is a well developed, well nourished patient who is awake, alert, ramona and in no acute distress. Head/Face: Normocephalic, atraumatic. Eyes: Pupils equal round and reactive to light, extra-ocular motions intact. Lids and lashes normal. Conjunctiva and sclera are non-icteric and not injected. Cornea within normal limits. Periorbital areas with no swelling, redness, or edema. ENT: Nares patent. No nasal discharge, no septal abnormalities noted. Tympanic membranes are normal and external auditory canals are clear. Oropharynx with no redness, swelling, or masses, exudates, or evidence of obstruction, uvula midline. Mucous membranes moist. Neck: Trachea midline, no thyromegaly or masses palpated, and no cervical lymphadenopathy. Supple, full range of motion without nuchal rigidity, or vertebral point tenderness. No Meningismus. Chest/axilla: Normal chest wall appearance and motion. Nontender with no deformity. No lesions are appreciated. Cardiovascular: Regular rate and rhythm with a normal S1 and S2. No gallops, murmurs, or rubs. Normal PMI, no JVD. No pulse deficits. Respiratory: Lungs have equal breath sounds bilaterally, clear to auscultation and percussion. No rales, rhonchi or wheezes noted. No increased work of breathing, no retractions or nasal flaring. Abdomen/GI: Soft, non-tender, with normal bowel sounds. No distension or tympany. No guarding or rebound. No evidence of tenderness throughout. Skin: Warm, dry with normal turgor. Normal color with no rashes, no lesions, and no evidence of cellulitis. MS/ Extremity: Pulses equal, no cyanosis. Neurovascular intact. Full, normal range of motion. Neuro: Awake and alert, GCS 15, oriented to person, place, time, and situation. Cranial nerves II-XII grossly intact. Motor strength 5/5 in all extremities. Sensory grossly intact. Cerebellar exam normal. Normal gait. 22:01 Abdomen/GI: Inspection: abdomen appears normal, Bowel sounds: normal, Palpation: abdomen is soft and non-tender, soft, nontender, Liver: no appreciated palpable abnormalities, Hernia: not appreciated, 22:01 Back: pain, that is moderate, ROM is painful, with rotation to the right, with rotation to the left, with flexion, with extension, normal spinal alignment noted, CVA tenderness, that is mild, is noted bilaterally, muscle spasm, is appreciated in the left low back, left mid back, right mid back and right low back, Straight leg raises: pain bilaterally, 22:01 Skin: Exam negative for Vital Signs: 21:22 BP 141 / 96; Pulse 91; Resp 18; Temp 98.2; Pulse Ox 97% on R/A; Weight 89.36 kg; Height cm10 5 ft. 4 in. ; Pain 10/10; 22:10 BP 134 / 87; Pulse 88; Resp 17 S; Pulse Ox 99% on R/A; lg3 23:38 BP 84 / ???; Pulse 91; Resp 18 S; Pulse Ox 98% on R/A; lg3 21:22 Body Mass Index 33.81 (89.36 kg, 162.56 cm) cm10 21:22 Pain Scale: Adult cm10 MDM: 21:12 Patient medically screened. [facility] 22:04 Differential diagnosis: closed fracture, contusion, tendonitis. Data reviewed: vital ramona signs, nurses notes, lab test result(s), radiologic studies, CT scan. Consideration of Admission/Observation Escalation of care including admission/observation considered. I considered the following discharge prescriptions or medication management in the emergency department Medications were administered in the Emergency Department. See MAR. Independent interpretation of the following test(s) in the Emergency Department CT Scan: My interpretation is ct abd/pelvis. Test considered but Not performed: EKG: no ekg. Historians other than the Patient: pt well informed. Care significantly affected by the following chronic conditions: Obesity. Counseling: I had a detailed discussion with the patient and/or guardian regarding the historical points, exam findings, and any diagnostic results supporting the discharge/admit diagnosis, lab results, radiology results, the need for outpatient follow up, for definitive care, a family practitioner, a neurologist. 05/09 21:28 Order name: CBC with Diff; Complete Time: 23:09 ramona 05/09 21:28 Order name: Comprehensive Metabolic Panel; Complete Time: 23: ramona 05/09 21:28 Order name: Urinalysis w/ reflexes; Complete Time: 23:09 ramona 05/09 21:28 Order name: PREGU; Complete Time: 23:09 ramona 05/09 21:28 Order name: UDS; Complete Time: 23: ramona 05/09 21:28 Order name: CT Abd/Pelvis - Without Contrast; Complete Time: 23:09 ramona Administered Medications: 22:09 Drug: NS 0.9% IV 1000 ml IV at 1 bolus Per protocol; 1000 mL bolus Route: IV; Rate: 1 cp4 bolus; Site: right wrist; 23:37 Follow up: IV Status: Completed infusion; IV Intake: 1000ml lg3 22:09 Drug: Ketorolac IVP 30 mg IVP once Route: IVP; Site: right wrist; cp4 23:37 Follow up: Response: No adverse reaction; Marked relief of symptoms lg3 22:09 Drug: morphine IVP or IV 4 mg IVP once over 4 mins Route: IVP; Infused Over: 4 mins; cp4 Site: right wrist; 23:37 Follow up: Response: No adverse reaction; Marked relief of symptoms lg3 22:09 Drug: Ondansetron IVP 4 mg IVP once; over 2 minutes Route: IVP; Site: right wrist; cp4 23:37 Follow up: Response: No adverse reaction; Marked relief of symptoms lg3 23:36 Drug: Decadron - Dexamethasone IVP 10 mg IVP once Route: IVP; Site: right wrist; lg3 23:37 Follow up: Response: No adverse reaction; Marked relief of symptoms lg3 Disposition Summary: 05/09/23 23:10 Discharge Ordered Notes: Location: Home ramona Problem: new ramona Symptoms: have improved ramona Condition: Stable ramona Diagnosis - Low back pain ramona - Unspecified symptoms and signs involving the musculoskeletal system ramona Followup: ramona - With: Private Physician - When: 2 - 3 days - Reason: Recheck today's complaints, Continuance of care, Re-evaluation by your physician Followup: ramona - With: Sotero Aceves MD - When: 2 - 3 days - Reason: Recheck today's complaints, Re-evaluation by your physician Discharge Instructions: - Discharge Summary Sheet [facility] - Acute Back Pain, Adult ramona - Musculoskeletal Pain [facility] Forms: - Medication Reconciliation Form [facility] - Thank You Letter ramona - Antibiotic Education ramona - Prescription Opioid Use [facility] - Patient Portal Instructions [facility] - Leadership Thank You Letter [facility] Prescriptions: - acetaminophen-codeine 300-30 mg Oral tablet - take 2 tablet ORAL route 4 times per day as needed for pain; 15 tablet; [facility] Refills: 0, Product Selection Permitted - dexamethasone 2 mg Oral tablet - take 1 tablet ORAL route every 12 hours; 8 tablet; Refills: 0, Product [facility] Selection Permitted - Ibuprofen 600 mg Oral Tablet - take 1 tablet ORAL route every 6 hours As needed take with food; 30 tablet; [facility] Refills: 0, Product Selection Permitted - orphenadrine citrate 100 mg Oral Tablet Sustained Release - take 1 tablet ORAL route 2 times per day As needed; 20 tablet; Refills: 0, [facility] Product Selection Permitted Signatures: Dispatcher [employer] Rafael Medeiros MD MD cha Able, Lacie, RN RN lg3 Leah Spencer RN RN cm10 Ariella Vences cp4
--- NOTE | 2023-05-09 23:11 | ER ---
Nurse's Notes [facility] Name: Oanh Gomez Age: 48 yrs Sex: Female : 1975 Arrival Date: 05/09/2023 Time: 21:05 Bed 18 Private MD: Diagnosis: Low back pain;Unspecified symptoms and signs involving the musculoskeletal system Presentation: 05/09 21:22 Chief complaint: Patient states: right sided back pain. Pt states that the pain started cm10 when she woke up this morning. Pt reports that the pain has been getting worse throughout the day. Coronavirus screen: Vaccine status: Patient reports being unvaccinated. Client denies travel out of the [place] in the last 14 days. Ebola Screen: Patient denies travel to an Ebola-affected area in the 21 days before illness onset. No symptoms or risks identified at this time. Initial Sepsis Screen: Does the patient meet any 2 criteria? No. Patient's initial sepsis screen is negative. Does the patient have a suspected source of infection? No. Patient's initial sepsis screen is negative. Risk Assessment: Do you want to hurt yourself or someone else? Patient reports no desire to harm self or others. Onset of symptoms was May 09, 2023. 21:22 Method Of Arrival: Wheelchair cm10 21:22 Acuity: CARLOS A 4 cm10 Historical: - Allergies: 21:23 Mobic; cm10 - PMHx: 21:23 Hepatitis C; History of drug abuse; cm10 - PSHx: 21:23 tubual; cm10 - Immunization history:: Adult Immunizations up to date. - Social history:: Smoking status: Patient denies any tobacco usage or history of. - Family history:: not pertinent. Screenin:10 [facility] ED Fall Risk Assessment (Adult) History of falling in the last 3 months, lg3 including since admission No falls in past 3 months (0 pts). Abuse screen: Denies threats or abuse. Denies injuries from another. Nutritional screening: No deficits noted. Tuberculosis screening: No symptoms or risk factors identified. Assessment: 22:10 General: Appears in no apparent distress. comfortable, Behavior is calm, cooperative. lg3 Pain: Complains of pain in right mid back and right low back Pain does not radiate. Neuro: No deficits noted. [place] Agitation-Sedation Scale (RASS): 0 - Alert and Calm Level of Consciousness is awake, alert, obeys commands, Oriented to person, place, time, situation. Cardiovascular: No deficits noted. Denies chest pain, shortness of breath, Capillary refill < 3 seconds Clubbing of nail beds is absent JVD is absent Patient's skin is warm and dry. Respiratory: No deficits noted. Airway is patent Respiratory effort is even, unlabored, Respiratory pattern is regular, symmetrical. GI: No deficits noted. No signs and/or symptoms were reported involving the gastrointestinal system. Abdomen is round non-distended, obese. : No deficits noted. No signs and/or symptoms were reported regarding the genitourinary system. EENT: No deficits noted. No signs and/or symptoms were reported regarding the EENT system. Derm: No deficits noted. No signs and/or symptoms reported regarding the dermatologic system. Skin is intact, is healthy with good turgor, Skin is dry, Skin is normal, Skin temperature is warm. Musculoskeletal: Circulation, motion, and sensation intact. Range of motion: intact in all extremities, Reports pain in right mid back and right low back. 23:38 Reassessment: Patient appears in no apparent distress at this time. No changes from lg3 previously documented assessment. Patient and/or family updated on plan of care and expected duration. Pain level reassessed. Patient is alert, oriented x 3, equal unlabored respirations, skin warm/dry/pink. Patient states feeling better. Patient states symptoms have improved. Vital Signs: 21:22 BP 141 / 96; Pulse 91; Resp 18; Temp 98.2; Pulse Ox 97% on R/A; Weight 89.36 kg; Height cm10 5 ft. 4 in. ; Pain 10/10; 22:10 BP 134 / 87; Pulse 88; Resp 17 S; Pulse Ox 99% on R/A; lg3 23:38 BP 84 / ???; Pulse 91; Resp 18 S; Pulse Ox 98% on R/A; lg3 21:22 Body Mass Index 33.81 (89.36 kg, 162.56 cm) cm10 21:22 Pain Scale: Adult cm10 ED Course: 21:08 Patient arrived in ED. gm2 21:12 Rafael Duffy MD is Attending Physician. [facility] 21:23 Triage completed. cm10 21:23 Arm band placed on Patient placed in an exam room, on a stretcher. cm10 21:32 Ariella Vences is Primary Nurse. cp4 22:04 Inserted saline lock: 20 gauge in right wrist, using aseptic technique. Blood collected.lg3 22:10 Report received from TERENCE Krishnan. Client placed on continuous cardiac and pulse lg3 oximetry monitoring. NIBP monitoring applied. Door closed. Noise minimized. Warm blanket given. Family accompanied patient. 22:10 Patient has correct armband on for positive identification. lg3 22:10 Patient maintains SpO2 saturation greater than 95% on room air. lg3 22:17 CT Abd/Pelvis - Without Contrast In Process Unspecified. EDMS 23:10 Sotero Aceves MD is Referral Physician. ramona 23:39 No provider procedures requiring assistance completed. IV discontinued, intact, lg3 bleeding controlled, No redness/swelling at site. Pressure dressing applied. Administered Medications: 22:09 Drug: NS 0.9% IV 1000 ml IV at 1 bolus Per protocol; 1000 mL bolus Route: IV; Rate: 1 cp4 bolus; Site: right wrist; 23:37 Follow up: IV Status: Completed infusion; IV Intake: 1000ml lg3 22:09 Drug: Ketorolac IVP 30 mg IVP once Route: IVP; Site: right wrist; cp4 23:37 Follow up: Response: No adverse reaction; Marked relief of symptoms lg3 22:09 Drug: morphine IVP or IV 4 mg IVP once over 4 mins Route: IVP; Infused Over: 4 mins; cp4 Site: right wrist; 23:37 Follow up: Response: No adverse reaction; Marked relief of symptoms lg3 22:09 Drug: Ondansetron IVP 4 mg IVP once; over 2 minutes Route: IVP; Site: right wrist; cp4 23:37 Follow up: Response: No adverse reaction; Marked relief of symptoms lg3 23:36 Drug: Decadron - Dexamethasone IVP 10 mg IVP once Route: IVP; Site: right wrist; lg3 23:37 Follow up: Response: No adverse reaction; Marked relief of symptoms lg3 Medication: 23:38 VIS not applicable for this client. lg3 Intake: 23:37 IV: 1000ml; Total: 1000ml. lg3 Outcome: 23:10 Discharge ordered by . ramona 23:39 Discharged to home ambulatory, lg3 23:39 Condition: stable 23:39 Discharge instructions given to patient, Instructed on discharge instructions, follow up and referral plans. medication usage, Demonstrated understanding of instructions, follow-up care, medications, Prescriptions given X 4, 23:39 Patient left the ED. lg3 Signatures: Dispatcher [employer] EDRafael Martinez MD MD cha Able, Lacie RN RN lg3 Leah Spencer RN RN cm10 Ariella Vences cp4 Eda Bland [facility]
[2023-05-10 01:27] VITALS: BP 134/87; TEMP 98.2
[2023-05-10 01:40] VITALS: O2SAT 98
== END ==
LOC: ER 21:05
DX: R29.91 Unspecified symptoms and signs involving the musculoskeletal system (principal)
CPT/HCPCS: 36415; 74176; 80053; 80307; 81001; 81025; 85025; 96361; 96374; 96375; 99285; J1100; J2405; J7030